=== PATIENT | male | born 1965 | race Caucasian/White ===

== ENCOUNTER 2021-08-16 07:58 | Inpatient (IN) | payer BC ==
[2021-08-16] MEDS ORDERED: ACETAMINOPHEN 1000 MG/100 ML BAG IVPB ONE (08:17)
[2021-08-16 08:32] VITALS: BMI 25.7
[2021-08-16] MEDS ORDERED: SODIUM CHLORIDE 1,000 ML IV ONE (08:32)
[2021-08-16 09:24] LABS: ACTIVATED PTT 30.8 SECONDS (25.2-36.5)
[2021-08-16 09:28] LABS: INR 1.35 (0.83-1.09)
[2021-08-16 09:37] LABS: ALBUMIN 2.8 g/dl (3.4-5.0); BILIRUBIN,TOTAL 1.3 mg/dl (0.2-1); CALCIUM 8.9 mg/dl (8.5-10); CREATININE 1.8 mg/dl (0.55-1.3); TOT PROT 7.2 g/dl (6.4-8.2)
[2021-08-16 10:31] LABS: BASO % 0.1 % (0-2.0); EOS % 0.3 % (0-4.5); HEMATOCRIT 33.6 % (35.4-49); HEMOGLOBIN 11.1 GM/dL (11.7-16.9); LYMPH % 6.3 % (8-40); MCH 28.4 pg (25.7-33.7); MCHC 33.1 g/dl (32.0-35.9); MEAN CELL VOLUME 85.8 fl (80-96); MEAN PLT VOLUME 7.3 fl (7.5-11.1); MONO % 7.9 % (3.8-10.2); NEUT % 85.4 % (42.8-82.8); PLATELET COUNT 405 10^3/uL (134-434); RBC 3.91 M/mm3 (4.00-5.60); RDW 13.4 % (11.9-15.9)
[2021-08-16] MEDS ORDERED: PROPOFOL 20 ML ONE ×2 (12:08)
[2021-08-16] MEDS ORDERED: MIDAZOLAM HCL 2 MG/2 ML SINGLE DOSE VIAL ONE (12:19)
[2021-08-16] MEDS ORDERED: ceFAZolin SODIUM 1 GM VIAL ONE (12:51)
[2021-08-16] MEDS ORDERED: BUPIVACAINE HCL/PF 0.25% (2.5MG/ML) 10 ML VIAL ONE (12:52)
[2021-08-16] MEDS ORDERED: BUPIVACAINE HCL/PF 0.25% (2.5MG/ML) 10 ML VIAL IJ ONE (12:57)
[2021-08-16] MEDS ORDERED: PROMETHAZINE HCL 25 MG/1 ML VIAL IVPUSH PRN (13:11)
[2021-08-16] MEDS ORDERED: ONDANSETRON 4 MG/2 ML VIAL IVPUSH PRN (13:11)
[2021-08-16] MEDS ORDERED: ONDANSETRON 4 MG/2 ML VIAL ONE (13:36)
[2021-08-16] MEDS: oxyCODONE HCL 5 MG TABLET PO PRN ×2 (14:40→14:45)
[2021-08-16] MEDS ORDERED: oxyCODONE HCL 5 MG TABLET ONE (14:45)
[2021-08-16 15:06] LABS: BF WBC & OTHER NUCLEATED CELLS 82874 /mm3
[2021-08-16] MEDS ORDERED: LACTATED RINGERS SOLUTION 1,000 ML IV SCH (15:45)
[2021-08-16 16:35] LABS: BODY FLUID MONOCYTE 4 %
[2021-08-16] MEDS ORDERED: PIPERACILLIN/TAZOBACTAM 3.375 GM VIAL IVPB ONE ×2 (17:43→23:37)
[2021-08-16] MEDS ORDERED: DEXTROSE 5%-WATER - 50 ML IVPB ONE ×2 (17:44→23:37)
[2021-08-16] MEDS: PIPERACILLIN/TAZOB 3.375 GM 3.375 GM in DEXTROSE 5%-WATER - 50 ML IVPB SCH (17:48)
[2021-08-16] MEDS: VANCOMYCIN 1 GRAM (PRE-DOCKED) 1,000 MG/250 ML BAG IVPB SCH (17:54)
[2021-08-16] MEDS: INSULIN SLIDING SCALE (NOVOLOG) 1 VIAL SQ SCH ×2 (18:38→21:15)
[2021-08-16] MEDS: VANCOMYCIN 250 MG/5 ML ORAL SOLUTION PO SCH ×2 (20:54→23:32)
[2021-08-16] MEDS: ATORVASTATIN CA 20 MG TABLET (FP) PO SCH (21:15)
[2021-08-17] MEDS: PIPERACILLIN/TAZOB 3.375 GM 3.375 GM in DEXTROSE 5%-WATER - 50 ML IVPB SCH ×3 (01:49→17:44)
[2021-08-17] MEDS: VANCOMYCIN 250 MG/5 ML ORAL SOLUTION PO SCH ×4 (06:25→23:36)
[2021-08-17] MEDS: oxyCODONE HCL 5 MG TABLET PO PRN (06:26)
[2021-08-17] MEDS: LEVOTHYROXINE NA 150 MCG TABLET PO SCH (06:26)
[2021-08-17] MEDS: INSULIN SLIDING SCALE (NOVOLOG) 1 VIAL SQ SCH ×4 (06:26→21:37)
[2021-08-17] MEDS ORDERED: GLIMEPIRIDE 4 MG TABLET PO SCH (07:00)
[2021-08-17] MEDS ORDERED: POTASSIUM CHLORIDE 10 MEQ in SODIUM CHLORIDE 0.45% 1,000 ML IVPB SCH (08:00)
[2021-08-17 08:30] LABS: ALBUMIN 2.3 g/dl (3.4-5.0); BILIRUBIN,TOTAL 0.6 mg/dl (0.2-1); CALCIUM 8.5 mg/dl (8.5-10); CREATININE 1.5 mg/dl (0.55-1.3); TOT PROT 6.1 g/dl (6.4-8.2)
[2021-08-17 08:33] LABS: BILIRUBIN,DIRECT 0.1 mg/dL (0.0-0.2)
[2021-08-17] MEDS ORDERED: PIPERACILLIN/TAZOBACTAM 3.375 GM VIAL IVPB ONE ×2 (09:09→17:22)
[2021-08-17] MEDS ORDERED: DEXTROSE 5%-WATER - 50 ML IVPB ONE ×2 (09:09→17:22)
[2021-08-17] MEDS: amLODIPine BESYLATE 5 MG TABLET (FP) PO SCH (09:16)
[2021-08-17] MEDS: AMITRIPTYLINE HCL 10 MG TABLET PO SCH (09:16)
[2021-08-17 09:23] LABS: BASO % 0.1 % (0-2.0); HEMATOCRIT 29.7 % (35.4-49); HEMOGLOBIN 9.7 GM/dL (11.7-16.9); LYMPH % 5.4 % (8-40); MCH 28.1 pg (25.7-33.7); MCHC 32.6 g/dl (32.0-35.9); MEAN CELL VOLUME 86.3 fl (80-96); MEAN PLT VOLUME 7.3 fl (7.5-11.1); MONO % 5.5 % (3.8-10.2); PLATELET COUNT 513 10^3/uL (134-434); RBC 3.44 M/mm3 (4.00-5.60); RDW 13.8 % (11.9-15.9); WHITE BLOOD COUNT 11.4 K/mm3 (4.0-10.0)
[2021-08-17 09:58] LABS: ERYTHROCYTE SEDIMENTATION RATE 92 mm/hr (0-20)
[2021-08-17] MEDS ORDERED: LOSARTAN POTASSIUM 50 MG TABLET PO SCH (10:00)
[2021-08-17] MEDS ORDERED: PATIENT'S OWN MEDICATION (NON-FORMULARY) (Empagliflozin [Jardiance] 10 MG Tablet) PO SCH (10:00)
[2021-08-17] MEDS ORDERED: REFRIGERATED ANITBIOTICS ONE (13:31)
[2021-08-17] MEDS: SODIUM CHLORIDE 1,000 ML IV SCH (17:05)
[2021-08-17] MEDS: VANCOMYCIN 1 GRAM (PRE-DOCKED) 1,000 MG/250 ML BAG IVPB SCH (17:46)
[2021-08-17 18:19] LABS: CREATININE, URINE RANDOM 43.9 mg/dL
[2021-08-17] MEDS: ATORVASTATIN CA 20 MG TABLET (FP) PO SCH (21:37)
[2021-08-18] MEDS ORDERED: DEXTROSE 5%-WATER - 50 ML IVPB ONE ×4 (01:07→17:28)
[2021-08-18] MEDS ORDERED: PIPERACILLIN/TAZOBACTAM 3.375 GM VIAL IVPB ONE ×2 (01:07→09:00)
[2021-08-18] MEDS: PIPERACILLIN/TAZOB 3.375 GM 3.375 GM in DEXTROSE 5%-WATER - 50 ML IVPB SCH ×2 (01:41→09:16)
[2021-08-18] MEDS: LEVOTHYROXINE NA 150 MCG TABLET PO SCH (06:32)
[2021-08-18] MEDS: ACETAMINOPHEN 325 MG TABLET (FP) PO PRN ×2 (06:32→16:24)
[2021-08-18] MEDS: VANCOMYCIN 250 MG/5 ML ORAL SOLUTION PO SCH ×4 (06:33→23:43)
[2021-08-18] MEDS: INSULIN SLIDING SCALE (NOVOLOG) 1 VIAL SQ SCH ×4 (07:33→21:33)
[2021-08-18 08:19] LABS: ALBUMIN 2.3 g/dl (3.4-5.0); BILIRUBIN,TOTAL 0.7 mg/dl (0.2-1); CALCIUM 8.2 mg/dl (8.5-10); CREATININE 1.4 mg/dl (0.55-1.3); TOT PROT 6.1 g/dl (6.4-8.2)
[2021-08-18] MEDS: SODIUM CHLORIDE 1,000 ML IV SCH (09:12)
[2021-08-18] MEDS: AMITRIPTYLINE HCL 10 MG TABLET PO SCH (09:15)
[2021-08-18] MEDS: amLODIPine BESYLATE 5 MG TABLET (FP) PO SCH (09:15)
[2021-08-18] MEDS: oxyCODONE HCL 5 MG TABLET PO PRN ×3 (09:15→18:49)
[2021-08-18 10:18] LABS: BASO % 0.3 % (0-2.0); EOS % 0.7 % (0-4.5); HEMOGLOBIN 10.1 GM/dL (11.7-16.9); LYMPH % 17.3 % (8-40); MCH 28.9 pg (25.7-33.7); MCHC 33.8 g/dl (32.0-35.9); MEAN CELL VOLUME 85.4 fl (80-96); MEAN PLT VOLUME 6.9 fl (7.5-11.1); MONO % 8.4 % (3.8-10.2); NEUT % 73.3 % (42.8-82.8); PLATELET COUNT 482 10^3/uL (134-434); RBC 3.51 M/mm3 (4.00-5.60); RDW 13.8 % (11.9-15.9); WHITE BLOOD COUNT 9.1 K/mm3 (4.0-10.0)
[2021-08-18] MEDS ORDERED: amLODIPine BESYLATE 5 MG TABLET (FP) PO ONE (11:00)
[2021-08-18] MEDS ORDERED: ceFAZolin SODIUM 1 GM VIAL ONE ×2 (17:17→17:28)
[2021-08-18] MEDS: CEFAZOLIN 2 GM in DEXTROSE 5%-WATER - 50 ML IVPB SCH (17:24)
[2021-08-18] MEDS: ATORVASTATIN CA 20 MG TABLET (FP) PO SCH (21:11)
[2021-08-19] MEDS ORDERED: DEXTROSE 5%-WATER - 50 ML IVPB ONE ×2 (01:02→09:04)
[2021-08-19] MEDS ORDERED: ceFAZolin SODIUM 1 GM VIAL ONE ×2 (01:02→09:03)
[2021-08-19] MEDS: oxyCODONE HCL 5 MG TABLET PO PRN ×3 (01:08→11:54)
[2021-08-19] MEDS: CEFAZOLIN 2 GM in DEXTROSE 5%-WATER - 50 ML IVPB SCH ×2 (01:09→09:10)
[2021-08-19] MEDS: ACETAMINOPHEN 325 MG TABLET (FP) PO PRN ×2 (01:09→11:54)
[2021-08-19 01:45] VITALS: TEMP 98.5
[2021-08-19] MEDS ORDERED: SODIUM CHLORIDE 1,000 ML IV SCH (06:00)
[2021-08-19] MEDS: VANCOMYCIN 250 MG/5 ML ORAL SOLUTION PO SCH ×2 (06:58→11:54)
[2021-08-19] MEDS: LEVOTHYROXINE NA 150 MCG TABLET PO SCH (06:59)
[2021-08-19] MEDS ORDERED: sitaGLIPtin PHOSPHATE 50 MG TABLET PO SCH (07:00)
[2021-08-19 08:27] LABS: ALBUMIN 2.9 g/dl (3.4-5.0); BILIRUBIN,TOTAL 0.7 mg/dl (0.2-1); CALCIUM 9.4 mg/dl (8.5-10); CREATININE 1.3 mg/dl (0.55-1.3); MAGNESIUM 1.7 mg/dL (1.8-2.4); PHOSPHOROUS 3.6 mg/dl (2.5-4.9); TOT PROT 7.4 g/dl (6.4-8.2)
[2021-08-19] MEDS: INSULIN SLIDING SCALE (NOVOLOG) 1 VIAL SQ SCH (08:33)
[2021-08-19] MEDS: AMITRIPTYLINE HCL 10 MG TABLET PO SCH (09:10)
[2021-08-19] MEDS: amLODIPine BESYLATE 5 MG TABLET (FP) PO SCH (09:10)
[2021-08-19 11:11] LABS: BASO % 0.4 % (0-2.0); EOS % 0.8 % (0-4.5); HEMATOCRIT 36.1 % (35.4-49); HEMOGLOBIN 11.6 GM/dL (11.7-16.9); LYMPH % 20.7 % (8-40); MCH 28.2 pg (25.7-33.7); MCHC 32.1 g/dl (32.0-35.9); MEAN CELL VOLUME 87.8 fl (80-96); MEAN PLT VOLUME 7.4 fl (7.5-11.1); MONO % 7.1 % (3.8-10.2); PLATELET COUNT 789 10^3/uL (134-434); RBC 4.11 M/mm3 (4.00-5.60); RDW 13.9 % (11.9-15.9); WHITE BLOOD COUNT 11.5 K/mm3 (4.0-10.0)
[2021-08-19 11:28] VITALS: BP 156/96; PULSE 103
[2021-08-19] MEDS ORDERED: INSULIN (LEVEMIR) 100 UNITS/ML UNITS SQ SCH (22:00)
== END 2021-08-19 03:00 | disposition home or self-care (01) | DRG 488 ==
LOC: FER 07:58 → FASUSAT 08:37 → FM/S 16:24 → FASUSAT 08-17 10:29 → FM/S 08-17 10:29
PROVIDERS: ADMIT Orthopaedic Surgery; ATTEND Orthopaedic Surgery
PROC: 0SBC4ZZ Excision of Right Knee Joint, Percutaneous Endoscopic Approach (ICD-10-PCS; principal; 2021-08-16 12:22)
PROC: 05HB33Z Insertion of Infusion Device into Right Basilic Vein, Percutaneous Approach (ICD-10-PCS; 2021-08-19)
PROC: B51MZZA Fluoroscopy of Right Upper Extremity Veins, Guidance (ICD-10-PCS; 2021-08-19)
DX: M25.461 Effusion, right knee (principal); N17.9 Acute kidney failure, unspecified; D72.829 Elevated white blood cell count, unspecified; E11.9 Type 2 diabetes mellitus without complications; I10 Essential (primary) hypertension; E03.9 Hypothyroidism, unspecified
CPT/HCPCS: 36415; 36569; 76775-TC; 80048; 80053; 80061; 80076; 81003; 82570; 82728; 82962; 83036; 83540; 83550; 83735; 84100; 84156; 84300; 84443; 85025; 85610; 85651; 85730; 86140; 86850; 86900; 86901; 87040; 87070; 87075; 87102; 87116; 87186; 87205; 87206; 87210; 89060; 93005; 93306-TC; 94760; 97116-GP; 97162-GP; 99285-25; C9803; J0131; U0003; U0005

== ENCOUNTER 2021-10-14 04:14 | Day surgery (SDC) | payer BC, OTHER ==
[2021-10-11 15:20] VITALS: BMI 24.4
[2021-10-14] MEDS ORDERED: LIDOCAINE HCL/PF 1% SDV 5ML VIAL ONE (07:10)
[2021-10-14] MEDS ORDERED: LIDOCAINE HCL/PF 2% SDV 5ML VIAL ONE (07:12)
[2021-10-14] MEDS ORDERED: LIDOCAINE 1% P/F 10 MG/ML VIAL INF ONE ×2 (10:45)
[2021-10-14 11:32] VITALS: TEMP 98
[2021-10-14 12:19] VITALS: BP 130/80; PULSE 80
== END 2021-10-14 12:00 | disposition home or self-care (01) ==
LOC: JASU-SURG 04:14
PROVIDERS: ATTEND Pain Medicine Pain Medicine
PROC: 01HY3MZ Insertion of Neurostimulator Lead into Peripheral Nerve, Percutaneous Approach (ICD-10-PCS; principal; 2021-10-14 10:30)
DX: G89.4 Chronic pain syndrome (principal); M25.561 Pain in right knee; I10 Essential (primary) hypertension; E11.9 Type 2 diabetes mellitus without complications
CPT/HCPCS: 64555; C1897